=== PATIENT | male | born 1970 | race Caucasian/White ===

== ENCOUNTER 2019-04-14 08:03 | Emergency (ER) | payer MEDICAID ==
[~2019-04-14] VITALS: Ht 190.5 cm; Wt 100.7 kg
[2019-04-14 08:07] VITALS: BP 135/88
--- NOTE | 2019-04-14 08:56 | NUR ---
Pt seen by PA blood drawn per orders. Pt dc home with belongings and dc instructions. All questions addressed as needed
[2019-04-14 10:22] LABS: HIV ANTIBODY 1&2 RAPID NON-REACTIVE (Neg)
[2019-04-16 08:14] LABS: RPR Reactive (Non Reactive)
== END 2019-04-14 09:01 | disposition home or self-care (01) ==
LOC: ER 08:05
DX: L98.8 Other specified disorders of the skin and subcutaneous tissue (principal); Z86.73 Personal history of transient ischemic attack (TIA), and cerebral infarction without residual deficits; Z88.0 Allergy status to penicillin
CPT/HCPCS: 36415; 86592; 86703; 99283

== ENCOUNTER 2019-04-16 17:26 | Emergency (ER) | payer MEDICAID ==
[~2019-04-16] VITALS: Ht 190.5 cm; Wt 102.0 kg
[2019-04-16] MEDS ORDERED: DOXY100C43 PO (18:21)
[2019-04-16 18:33] VITALS: BP 131/85
== END 2019-04-16 18:34 | disposition home or self-care (01) ==
LOC: ER 17:27
DX: A53.9 Syphilis, unspecified (principal); Z86.73 Personal history of transient ischemic attack (TIA), and cerebral infarction without residual deficits; Z88.0 Allergy status to penicillin; Z79.899 Other long term (current) drug therapy
CPT/HCPCS: 99283

== ENCOUNTER 2020-08-26 06:16 | Emergency (ER) | payer MEDICAID ==
[~2020-08-26] VITALS: Ht 190.5 cm; Wt 90.9 kg
[2020-08-26] MEDS ORDERED: normal saline 1000ml 1,000 ML IV ONE (06:35)
--- NOTE | 2020-08-26 06:48 | NUR ---
PT SITTING IN BED DRINKING COFFEE ,DR PRASAD AT BEDSIDE.
[2020-08-26 07:17] LABS: BASOPHILS % (AUTO) 0.6 % (0-1); EOSINOPHILS # (AUTO) 0.2 X10'3 (0-0.9); EOSINOPHILS % (AUTO) 4.8 % (0-6); HEMATOCRIT 44.7 % (42.0-52.0); HEMOGLOBIN 15.1 g/dl (14.0-17.9); LYMPHOCYTES # (AUTO) 1.6 X10'3 (1.1-4.8); LYMPHOCYTES % (AUTO) 37.2 % (21-51); MEAN CORPUSCULAR HEMOGLOBIN 30.4 PG (27.0-31.0); MEAN CORPUSCULAR HGB CONC 33.7 g/dL (33.0-36.5); MEAN CORPUSCULAR VOLUME 90.3 FL (78-98); MEAN PLATELET VOLUME 7.5 FL (7.4-10.4); MONOCYTES # (AUTO) 0.3 X10'3 (0-0.9); MONOCYTES % (AUTO) 7.7 % (2-12); NEUTROPHILS # (AUTO) 2.2 X10'3 (1.8-7.7); NEUTROPHILS % (AUTO) 49.7 % (42-75); PLATELET COUNT 285 X10'3 (140-440); RED BLOOD COUNT 4.96 X10'6 (4.70-6.10); RED CELL DISTRIBUTION WIDTH 13.8 % (11.5-14.5); WHITE BLOOD COUNT 4.4 X10'3 (4.5-11.0)
[2020-08-26 07:19] LABS: PARTIAL THROMBOPLASTIN TIME 27 SECONDS (22-32)
[2020-08-26 07:23] LABS: ALANINE AMINOTRANSFERASE 31 U/L (12-78); ALBUMIN 3.9 G/DL (3.4-5.0); ALBUMIN/GLOBULIN RATIO 1.1 (1.1-1.5); ALKALINE PHOSPHATASE 62 IU/L (46-116); ANION GAP 12 (8-16); ASPARTATE AMINO TRANSFERASE 21 U/L (10-37); BILIRUBIN,TOTAL 0.8 MG/DL (0.1-1.0); BLOOD UREA NITROGEN 14 MG/DL (7-18); BUN/CREATININE RATIO 15.4 (5.4-32.0); CALCIUM 8.5 MG/DL (8.5-10.1); CHLORIDE 106 MMOL/L (99-107); CREATININE 0.91 MG/DL (0.60-1.10); GLUCOSE 158 MG/DL (70-104); POTASSIUM 3.9 MMOL/L (3.5-5.1); SODIUM 143 MMOL/L (135-145); TOTAL CARBON DIOXIDE 24.7 MMOL/L (24-32); TOTAL PROTEIN 7.4 G/DL (6.4-8.2); eGFR 88 ML/MIN
[2020-08-26 07:27] LABS: TROPONIN I < 0.04 NG/ML (0.0-0.05)
[2020-08-26] MEDS ORDERED: LORazepam 2 mg/ml vial IV ONE (07:35)
[2020-08-26 08:17] VITALS: BP 118/69
== END 2020-08-26 08:31 | disposition short-term general hospital (02) ==
LOC: ER 06:18
DX: I62.9 Nontraumatic intracranial hemorrhage, unspecified (principal); Z20.822 Contact with and (suspected) exposure to COVID-19; Z88.0 Allergy status to penicillin
CPT/HCPCS: 36415; 70450; 80053; 82948; 84484; 85025; 85610; 85730; 87635; 93005; 99291; C9803; J7030; 96360

== ENCOUNTER 2022-10-28 18:06 | Emergency (ER) | payer MEDICAID ==
[~2022-10-28] VITALS: Ht 191.8 cm; Wt 74.0 kg
[2022-10-28 18:16] VITALS: BP 135/80; PULSE 81; RESP 18; TEMP 99.4; O2SAT 97
[2022-10-28] MEDS ORDERED: LIDOcaine 1% W/epiNEPHrine 1:100,000 20ml vial SQ ONE (19:20)
== END 2022-10-28 20:55 | disposition home or self-care (01) ==
LOC: ER 18:06
DX: S61.012A Laceration without foreign body of left thumb without damage to nail, initial encounter (principal); Z88.0 Allergy status to penicillin; W01.0XXA Fall on same level from slipping, tripping and stumbling without subsequent striking against object, initial encounter; Y93.89 Activity, other specified; Y92.89 Other specified places as the place of occurrence of the external cause; Y99.8 Other external cause status
CPT/HCPCS: 12001; 99284; J7030; A6449

== ENCOUNTER 2024-08-11 17:26 | Emergency (ER) | payer MEDICAID ==
[~2024-08-11] VITALS: Ht 193 cm; Wt 85.9 kg
[2024-08-11 17:31] VITALS: BP 141/77; PULSE 65; RESP 16; TEMP 98.3; O2SAT 98
[2024-08-11] MEDS ORDERED: DOXY-460 PO (19:09)
--- NOTE | 2024-08-11 19:10 | Physician Documentation ---
History of Present Illness ~ Chief Complaint: Abscess Stated Complaint: UNDER ARM PAIN Time Seen by MD: 18:22 OK to notify your PCP?: Yes Primary Medical Doctor: NONE Source: patient Mode of Arrival: POV Exam Limitations: no limitations RUCHI Dominguez is a 54-year-old male presenting with a painful lump under his right armpit. He states this has been going on for the past month after changing deodorant brands. He rates his pain 1/10. Pain medications taken prior to arrival. This lump has not opened up or started draining. Tetanus Within 5 Years: Yes Medication Reconciliation Allergies: Coded Allergies: Penicillins (Verified Allergy, Unknown, 10/28/22) Scheduled Doxycycline Monohydrate (Doxycycline Monohydrate), 1 CAP PO Q12H Past Medical History Past Medical History: CVA/TIA/Stroke, *INFECTIOUS DZ* Past Surgical History: no surgical history Alcohol Use: None Lives In: Home Occupation: employed Review of Systems All Other Systems at this time: Reviewed and Negative Physical Exam Vital Signs: RN Vital Signs have been reviewed: Yes, Temperature: 98.3, Source: Oral, Heart Rate: 65, Respiratory Rate: 16, BP: 141/77, Pulse Oximetry: 98, Weight: 85.910 Pulse Oximetry Reflects: adequate oxygenation Physical Exam General: Alert, no apparent distress. HEENT: PERRL, EOMI, no injection, moist mucous membranes. Neck: Full range of motion. Respiratory: Lungs clear, no respiratory distress. Chest: No accessory muscle use. Cardiovascular: Regular rate and rhythm, no murmurs. Extremities: Normal range of motion, no deformity. Neurologic: Oriented x4. Psychiatric: Normal mood and affect. Skin: Normal color, warm and dry. Erythema and warmth to nodule approximately 2 cm x 2 cm circular, moveable under the right axillary. Procedures I & D Procedure : Site: right axillary Anesthesia: Lidocaine Volume Anesthetic (mls): 3 Blade Size: 11 Prep/Supplies: betadine prep, drapes applied, dressing applied Incision: mass incised, pus drained, blood drained Tolerated Procedure Well?: yes, no complications Progress Results/Orders Results/Orders Orders - BERNARD ANTUNEZ Laceration/I&D Tray Set Up (08/11/24 ) Completed Orders - BERNARD ANTUNEZ LABOR UTILIZATION SUPERINTENDENT Lidocaine 1% 30ml Vial (Xylocaine 1% Via (08/11/24 19:02) Doxycycline 100mg Capsule (Vibramycin 10 (08/11/24 19:02) Vital Signs 08/11/24 17:31 Temp 98.3 Pulse 65 Resp 16 B/P (MAP) 141/77 Pulse Ox 98 Medical Decision Making Findings Alberto is a 54-year-old male presenting with a painful red lump under his right armpit for the past month after switching deodorants. On exam this appears to be small cutaneous abscess. I performed an I and D procedure using 1% lidocaine and there was some pus and blood drainage with reduction in size. Patient tolerated procedure well. He was given a 1st dose of doxycycline while here in the department and I prescribed a prescription for doxycycline 100 mg twice daily for 7 days. He was advised to follow up with his primary care provider in the next 3 days and return back here for any new or worsening symptoms. Differential Dx:Considerations: Include: Bacteremia, Cellulitis, Erysipelas, Lymphangitis Departure Disposition: HOME / SELF CARE / HOMELESS Impression: Primary Impression: Abscess Condition: Stable Discharge Instructions: Incision and Drainage, Skin Abscess, [id number] Additional Instructions: Keep area clean and dry. Do not use any deodorant under this arm for the next 7 days. Take all antibiotics as prescribed, finish the course. Follow up with her primary care provider in the next 3 days and return back here for any new or worsening symptoms. Referrals: NO PRIMARY CARE PROVIDER (PCP) Prescriptions Doxycycline Monohydrate (Doxycycline Monohydrate) 100 Mg Capsule 1 CAP PO Q12H for 7 Days, #14 CAP Prov: BERNARD ANTUNEZ 08/11/24 Education Educated: Patient Educated regarding: diagnosis, treatment, prognosis, need for follow up Signature Scribe Signature: . Attestation: Scribed for Bernard Antunez by Bernard Gallardo NP . 08/11/24 19:48 BERNARD ANTUNEZ August 11, 2024 19:10
[2024-08-11] MEDS: DOXYCYCLINE 100MG CAPSULE PO STA (19:14)
[2024-08-11] MEDS: LIDOcaine 1% 30ml preserv. free vial IJ STA (19:15)
== END 2024-08-11 19:45 | disposition home or self-care (01) ==
LOC: ER 17:27
DX: L02.411 Cutaneous abscess of right axilla (principal); Z86.73 Personal history of transient ischemic attack (TIA), and cerebral infarction without residual deficits; Z88.0 Allergy status to penicillin
CPT/HCPCS: 10060; 99283